=== PATIENT | male | born 1935 | race Caucasian/White ===

== ENCOUNTER 2017-05-20 16:40 | Emergency (ER) | payer OTHER, BC ==
[2017-05-20 17:09] VITALS: BP 148/52; PULSE 70; TEMP 98.3; BMI 40.6
--- NOTE | 2017-05-20 17:14 | PDOC ---
History of Present Illness - General History Source: Patient Exam Limitations: No Limitations - History of Present Illness Initial Comments: 05/20/17 17:16 The patient is a 82 year old male, with a significant past medical history of kidney stones, diabetes, hypertension, hyperlipidemia, anemia, CHF, who presents to the emergency department complaining of abdominal pain since approximately 15:30. The patient reports his abdominal pain began when he went to wash his hands, but resolved. Patient reports going to the bathroom about an hour later when his pain started up again. He reports his pain is localized in the upper quadrants and radiates into his flank region bilaterally. Patient reports his pain is constant and exacerbated with movement. He states his pain is similar to when he had kidney stones in the past. He denies any dysuria, hematuria, frequency, or urgency. Patient reports a history of back surgery last March, which did not resolve his pain. As a result, patient had a spinal cord stimulator implanted yesterday. He denies any associated back pain. Patient reports his last bowel movement was several days ago, and reports some nausea, but denies any vomiting or diarrhea. He denies any fever or chills. He denies any chest pain, shortness of breath, diaphoresis or palpitations. Allergies: NKDA Past Surgical History: Quadruple bypass (2003), Cardiac stent (2011), Back surgery(2015), Cholecystectomy(2004), Hernia repair. Social History: Occasional ETOH use. Non smoker. No recreational drug use Family History: None reported PCP: Dr. Mariscal <Hoda Andino - Last Filed: 05/20/17 18:58> <Sundeep Martinez - Last Filed: 05/20/17 19:08> <Yvette Egan - Last Filed: 05/21/17 02:01> - General Chief Complaint: Pain Stated Complaint: ABDOMINAL PAIN Time Seen by Provider: 05/20/17 16:56 Past History <Hoda Andino - Last Filed: 05/20/17 18:58> <Sundeep Martinez - Last Filed: 05/20/17 19:08> <Yvette Egan - Last Filed: 05/21/17 02:01> - Past Medical History Allergies/Adverse Reactions: Allergies Allergy/AdvReac Type Severity Reaction Status Date / Time No Known Allergies Allergy Verified 05/20/17 16:52 Home Medications: Ambulatory Orders Aspirin Coated [Ecotrin -] 81 mg PO DAILY 05/20/17 Cyanocobalamin (Vitamin B-12) [Cyanocobalamin Injection] 1,000 mcg IJ MONTHLY Furosemide [Lasix] 20 mg PO DAILY PRN 05/20/17 Lisinopril [Prinivil] 5 mg PO BID 05/20/17 Metoprolol Succinate [Toprol Xl -] 25 mg PO DAILY 05/20/17 Omeprazole 20 mg PO DAILY 05/20/17 Pioglitazone HCl [Actos] 30 mg PO DAILY 05/20/17 Psyllium Husk [Metamucil] 1 tbs PO TID 05/20/17 Rosuvastatin Calcium [Crestor] 5 mg PO DAILY 05/20/17 Sildenafil Citrate [Viagra] 100 mg PO PRN PRN 05/20/17 Review of Systems - Review of Systems Able to Perform ROS?: Yes Comments:: 05/20/17 17:17 CONSTITUTIONAL: Absent: fever, no chills, no fatigue EYES: Absent: visual changes ENT: Absent: ear pain, no sore throat CARDIOVASCULAR: Absent: chest pain, no palpitations RESPIRATORY: Absent: cough, no SOB GI: Present: +abdominal pain, +constipation, +nausea Absent: no vomiting, no diarrhea GENITOURINARY: Present: +bilateral flank pain Absent: dysuria, no frequency, no hematuria MUSKULOSKELETAL: Absent: back pain, no arthralgia, no myalgia SKIN: Absent: rash NEURO: Absent: headache <Andino,Giomilsy - Last Filed: 05/20/17 18:58> *Physical Exam - Vital Signs Last Vital Signs Temp Pulse Resp BP Pulse Ox 98.3 F 70 20 148/52 99 05/20/17 16:51 05/20/17 16:51 05/20/17 16:51 05/20/17 16:51 05/20/17 16:51 - Physical Exam Comments: 05/20/17 17:17 GENERAL: Well-appearing, well-nourished. No apparent distress. HEENT: Normocephalic, atraumatic. PERRL, EOM intact. CARDIOVASCULAR: Normal S1, S2. Regular rate and rhythm. PULMONARY: Clear to auscultation bilaterally. ABDOMEN: Soft, non-distended, non-tender. GENITOURINARY: +CVA tenderness bilaterally. BACK: No point tenderness along the vertebrae EXTREMITIES: Normal ROM in all four extremities. No gross deformities. SKIN: Warm, dry. No rash NEUROLOGICAL: No focal neurological deficits. <Parul Andinohermann - Last Filed: 05/20/17 18:58> - Vital Signs Last Vital Signs Temp Pulse Resp BP Pulse Ox 98.3 F 70 20 148/52 99 05/20/17 16:51 05/20/17 16:51 05/20/17 16:51 05/20/17 16:51 05/20/17 16:51 <Yvette Egan - Last Filed: 05/21/17 02:01> ED Treatment Course - LABORATORY CBC & Chemistry Diagram: 05/20/17 17:25 05/20/17 17:25 - RADIOLOGY Radiograph Interpretation: 05/20/17 18:58 EXAM: CT Abdomen and Pelvis INTERPRETED BY: Dr. Martino REVIEWED BY: Dr. Martinez IMPRESSION: 2 mm nonobstructing left renal calculus. Status post cholecystectomy. Multilevel lumbar spine surgery. Spinal cord stimulator device in place. Marked right hip degenerative joint space narrowing. Findings within the partially imaged lower chest as discussed above. <Hoda Andino - Last Filed: 05/20/17 18:58> - LABORATORY CBC & Chemistry Diagram: 05/20/17 17:25 05/20/17 17:25 <Sundeep Martinez - Last Filed: 05/20/17 19:08> - LABORATORY CBC & Chemistry Diagram: 05/20/17 17:25 05/20/17 17:25 - ADDITIONAL ORDERS Additional order review: Laboratory Results 05/20/17 05/20/17 05/20/17 18:55 17:25 17:25 INR Sodium 138 Potassium 4.5 Chloride 106 Carbon Dioxide 26 Anion Gap 6 L BUN 21 H Creatinine 1.3 Creat Clearance w eGFR 52.85 Random Glucose 153 H Calcium 8.8 Total Bilirubin 0.8 AST 23 ALT 14 Alkaline Phosphatase 67 Creatine Kinase 498 H CK-MB (CK-2) Cancelled Troponin I 0.03 Total Protein 7.0 Albumin 3.8 Lipase 28 Urine Color Yellow Urine Appearance Clear Urine pH 5.0 Ur Specific [place] 1.025 Urine Protein 1+ H Urine Glucose (UA) Negative Urine Ketones Negative Urine Blood Trace-intact Urine Nitrite Negative Urine Bilirubin Negative Urine Urobilinogen 0.2 Ur Leukocyte Esterase Negative 05/20/17 17:25 INR 1.00 Sodium Potassium Chloride Carbon Dioxide Anion Gap BUN Creatinine Creat Clearance w eGFR Random Glucose Calcium Total Bilirubin AST ALT Alkaline Phosphatase Creatine Kinase CK-MB (CK-2) Troponin I Total Protein Albumin Lipase Urine Color Urine Appearance Urine pH Ur Specific [place] Urine Protein Urine Glucose (UA) Urine Ketones Urine Blood Urine Nitrite Urine Bilirubin Urine Urobilinogen Ur Leukocyte Esterase 05/20/17 17:25 RBC 3.96 L MCV 87.5 MCHC 34.1 RDW 12.8 MPV 9.3 Neutrophils % 76.3 Lymphocytes % 13.4 Monocytes % 8.8 Eosinophils % 0.6 Basophils % 0.9 - Medications Given in the ED: ED Medications Discontinued Medications Generic Name Dose Route Start Last Admin Trade Name Freq PRN Reason Stop Dose Admin Ketorolac Tromethamine 30 mg 05/20/17 17:22 05/20/17 17:35 Toradol Injection - IVPUSH 05/20/17 17:23 30 mg ONCE ONE Administration <Yvette Egan - Last Filed: 05/21/17 02:01> Progress Note - Progress Note Progress Note: Care of this patient received from Dr. Martinez. Urinalysis dipstick positive for 1+ protein/Trace heme. Microscopic exam shows 0 to 2 RBCs,, 2-5 WBCs, few bacteria. Urine sent for culture and sensitivity. The patient was discharged with follow up with his spine surgeon. <Yvette gEan - Last Filed: 05/21/17 02:01> Medical Decision Making - Medical Decision Making 05/20/17 18:15 The patient states that he is much improved after the administration of Toradol. He is moving more freely, lying comfortably on his back, whereas before he had to lie on his side to get comfortable. 05/20/17 18:52 CAT scanned does not appear to show a renal source for the pain. There are kidney calcifications but no sign of ureteral calculus, hydronephrosis, or obstruction. The remainder of the examination without significant abnormality. The patient is ambulating adequately. His pain is most likely due to back spasm and possibly irritation or immobility due to his surgery yesterday. <Sundeep Martinez - Last Filed: 05/20/17 19:08> *DC/Admit/Observation/Transfer - Attestations Scribe Attestion: 05/20/17 17:17 Documentation prepared by Hoda Andino, acting as medical facilities section director for Sundeep No MD. <Hoda Andino - Last Filed: 05/20/17 18:58> - Discharge Dispostion Admit: No <Sundeep Martinez - Last Filed: 05/20/17 19:08> <Yvette Egan - Last Filed: 05/21/17 02:01> Diagnosis at time of Disposition: Musculoskeletal pain - Discharge Dispostion Disposition: HOME Condition at time of disposition: Good - Referrals Referrals: Ruma Mariscal [Primary Care Provider] - 24 hours - Patient Instructions Printed Discharge Instructions: DI for Low Back Pain Additional Instructions: Use your Percocet for pain. Heating pad, warm compresses, or gentle massage may be helpful Contacted your spine surgeon tomorrow, advised of your symptoms, and determine if he should be seen again. Return to the emergency room if your symptoms worsen or additional symptoms develop, especially fever or chills, bloody urine, nausea, vomiting, or diarrhea.
[2017-05-20] MEDS ORDERED: KETOROLAC TROMETHAMINE 30 MG/1 ML VIAL IVPUSH ONE (17:22)
[2017-05-20] MEDS ORDERED: KETOROLAC TROMETHAMINE 30 MG/1 ML VIAL ONE (17:30)
[2017-05-20 17:43] LABS: BASOPHIL 0.9 % (0-2.0); EOSINOPHIL 0.6 % (0-4.5); MCH 29.9 pg (25.7-33.7); MCHC 34.1 g/dl (32.0-35.9); MEAN CELL VOLUME 87.5 fl (80-96); MEAN PLT VOLUME 9.3 fl (7.5-11.1); NEUTROPHILS 76.3 % (42.8-82.8); PLATELET COUNT 208 K/MM3 (134-434); RDW 12.8 % (11.9-15.9); WHITE BLOOD COUNT 13.6 K/mm3 (4.0-10.8)
[2017-05-20 17:50] LABS: PROTHROMBIN TIME (PATIENT) 11.2 SEC (10.2-13.0)
[2017-05-20 17:57] LABS: ALBUMIN 3.8 g/dl (3.5-5.0); ALK PHOS 67 U/L (32-92); ANION GAP 6 (8-16); BILIRUBIN,TOTAL 0.8 mg/dl (0.2-1.0); CALCIUM 8.8 mg/dl (8.4-10.2); CO2 26 mmol/L (22-28); CREATININE 1.3 mg/dl (0.6-1.3); GLUCOSE,RANDOM 153 mg/dl (74-106); SGOT/AST 23 U/L (10-42); SGPT/ALT 14 U/L (10-40)
[2017-05-20 18:06] LABS: TROPONIN I (DFP) 0.03 ng/ml (0.03-0.50)
[2017-05-20 19:06] LABS: URINE APPEARANCE Clear; URINE BILIRUBIN Negative (NEGATIVE); URINE BLOOD Trace-intact (NEGATIVE); URINE GLUCOSE (UA) Negative (NEGATIVE); URINE KETONE Negative (NEGATIVE); URINE LEUK ESTERASE Negative (NEGATIVE); URINE NITRITE Negative (NEGATIVE); URINE UROBILINOGEN 0.2 (0.2-1.0)
[2017-05-20 19:07] LABS: URINE COLOR YELLOW; URINE PROTEIN 1+ (NEGATIVE)
[2017-05-20 19:35] LABS: URINE BACTERIA FEW /hpf (NEGATIVE); URINE RBC 0-2 /hpf (0-3)
[2017-05-20 20:11] LABS: CK MB 4.5 ng/ml (0.3-4.0)
== END 2017-05-20 19:40 | disposition home or self-care (01) ==
LOC: FER 16:40
PROC: 3E0333Z Introduction of Anti-inflammatory into Peripheral Vein, Percutaneous Approach (ICD-10-PCS; principal; 2017-05-20)
DX: M79.1 Myalgia (principal)
CPT/HCPCS: 36415; 74176; 80053; 81003; 81015; 82550; 82553; 83690; 84484; 85025; 85610; 87086; 96374; 99283-25